=== PATIENT | male | born 1975 | race Caucasian/White ===

== ENCOUNTER 2020-10-30 09:45 | Emergency (ER) | payer SELFPAY ==
[2020-10-30 09:52] VITALS: TEMP 98.4; BMI 34.7
[2020-10-30] MEDS ORDERED: KETOROLAC TROMETHAMINE 30 MG/1 ML VIAL IVPUSH ONE (10:31)
[2020-10-30] MEDS ORDERED: ASPIRIN 325 MG TABLET PO ONE (10:38)
[2020-10-30] MEDS ORDERED: ASPIRIN 325 MG ENTERIC COATED TABLET (FP) ONE (10:58)
[2020-10-30 11:16] LABS: BASO % 0.6 % (0-2.0); EOS % 0.5 % (0-4.5); HEMATOCRIT 46.4 % (35.4-49); HEMOGLOBIN 15.8 GM/dL (11.7-16.9); MCH 31.3 pg (25.7-33.7); MEAN CELL VOLUME 92.1 fl (80-96); MEAN PLT VOLUME 8.4 fl (7.5-11.1); MONO % 6.6 % (3.8-10.2); NEUT % 69.3 % (42.8-82.8); PLATELET COUNT 256 K/MM3 (134-434); RBC 5.04 M/mm3 (4.00-5.60); RDW 13.4 % (11.9-15.9); WHITE BLOOD COUNT 5.9 K/mm3 (4.0-10.0)
[2020-10-30 11:34] LABS: CHLORIDE 106 mmol/L (98-107); SODIUM 137 mmol/L (136-145)
[2020-10-30 11:38] LABS: ALBUMIN 4.2 g/dl (3.4-5.0); ANION GAP 5 MMOL/L (8-16); CO2 27 mmol/L (21-32); GLUCOSE,RANDOM 105 mg/dL (74-106)
[2020-10-30 11:41] LABS: CREATININE 0.8 mg/dL (0.55-1.3); SGOT/AST 27 U/L (15-37); SGPT/ALT 46 U/L (13-61)
[2020-10-30 11:43] LABS: BILIRUBIN,TOTAL 0.6 mg/dL (0.2-1); TOT PROT 7.7 g/dl (6.4-8.2)
[2020-10-30 11:44] LABS: ALK PHOS 89 U/L (45-117)
[2020-10-30 15:29] VITALS: BP 114/78; PULSE 89
== END 2020-10-30 15:36 | disposition home or self-care (01) ==
LOC: JER 09:45
PROC: 3E0233Z Introduction of Anti-inflammatory into Muscle, Percutaneous Approach (ICD-10-PCS; principal; 2020-10-30)
DX: R07.9 Chest pain, unspecified (principal)
CPT/HCPCS: 36415; 71046-TC-FY; 80053; 82550; 82553; 84484; 85025; 93005; 93010; 99284-25